=== PATIENT | male | born 1985 ===

== ENCOUNTER 2025-01-31 20:09 | Emergency (ER) | payer MEDICAID ==
[~2025-01-31] VITALS: Ht 177.8 cm; Wt 123.6 kg
--- NOTE | 2025-01-31 20:42 | Physician Documentation ---
History of Present Illness ~ Chief Complaint: Abdominal Pain Stated Complaint: ABDOMINAL PAIN Time Seen by MD: 20:41 HPI Patient presents to the emergency room with three days' history of right lower quadrant abdominal pain. No prior instances. No previous abdominal surgeries. Denies any bladder or bowel changes. Denies nausea. He has had nothing for his pain Medication Reconciliation Allergies: Coded Allergies: No Known Allergies (Unverified , 01/31/25) Review of Systems ROS All review of systems negative except as per HPI Physical Exam Vital Signs: Temperature: 98.7, Source: Oral, Heart Rate: 87, Respiratory Rate: 16, BP: 132/85, Pulse Oximetry: 97, Weight: 123.600 Oxygen Flow Rate: 0 Physical Exam General: Patient is awake, alert, oriented x4 in no acute distress Head: Normocephalic and atraumatic. Eyes: Conjunctival normal. EOMI. PERRL. ENT: Mucous membranes moist. Neck: Supple, trachea is midline. Chest: Clear to auscultation bilaterally without rales, rhonchi, or wheezes. There is no accessory muscle use or retractions. Cardiac: RRR without murmurs, gallops, or rubs. Abd: Soft, nondistended, mild right lower quadrant tenderness to palpation without peritonitis Progress Results/Orders Results/Orders Orders - KAUSHAL ROSALES MD Urinalysis, Cult If Indicated (01/31/25 20:24) Ct Abdomen Pelvis (01/31/25 21:45) Completed Orders - KAUSHAL ROSALES MD Cbc/Diff (01/31/25 20:24) BMP (01/31/25 20:24) Lipase (01/31/25 20:24) CMP (01/31/25 20:24) Ct Abdomen Pelvis (01/31/25 21:45) Amox Tr/Potassium Clavulanate (Augmentin (01/31/25 22:15) Ondansetron Disint. Tablet (Zofran Odt T (01/31/25 22:15) Vital Signs 01/31/25 01/31/25 20:19 22:01 Temp 98.7 Pulse 87 Resp 16 18 B/P (MAP) 132/85 Pulse Ox 97 O2 Flow Rate 0 Laboratory Tests Test 01/31/25 20:31 White Blood Count 12.7 H Red Blood Count 4.93 Hemoglobin 15.9 Hematocrit 46.4 Mean Corpuscular Volume 94.0 Mean Corpuscular Hemoglobin 32.2 H Mean Corpuscular Hemoglobin Concent 34.3 Red Cell Distribution Width 13.2 Platelet Count 293 Mean Platelet Volume 7.1 L Neutrophils (%) (Auto) 62.2 Lymphocytes (%) (Auto) 25.0 Monocytes (%) (Auto) 10.0 Eosinophils (%) (Auto) 2.4 Basophils (%) (Auto) 0.4 Neutrophils # (Auto) 7.9 H Lymphocytes # (Auto) 3.2 Monocytes # (Auto) 1.3 H Eosinophils # (Auto) 0.3 Basophils # (Auto) 0.0 CBC Comment Sodium Level 139 Potassium Level 4.2 Chloride Level 103 Carbon Dioxide Level 29.5 Anion Gap 7 L Blood Urea Nitrogen 16 Creatinine 0.97 Estimated GFR/1.73 m2 86 BUN/Creatinine Ratio 16.5 Glucose Level 102 Calcium Level 8.8 Total Bilirubin 0.3 Aspartate Amino Transf (AST/SGOT) 16 Alanine Aminotransferase (ALT/SGPT) 33 Alkaline Phosphatase 125 H Total Protein 7.6 Albumin 3.7 Globulin 3.9 Albumin/Globulin Ratio 0.9 L Lipase 54 Chemistry Comments Medical Decision Making Findings Patient presents to the emergency room for evaluation of abdominal pain. Differentials include but are not limited to appendicitis cholecystitis diverticulitis pancreatitis kidney stone therefore emergent labs and imaging indicated. Slight elevation of white blood cell count and CT scan shows d iverticulitis and we will treat him as such. He is nontoxic appearing I believe will do well on outpatient basis. Antibiotics initiated. Departure Disposition: HOME / SELF CARE / HOMELESS Impression: Primary Impression: Diverticulitis Condition: Stable Discharge Instructions: Diverticulitis Referrals: NO PRIMARY CARE PROVIDER (PCP) Prescriptions Amox Tr/Potassium Clavulanate (Augmentin 500-125 Tablet) 1 Each Tablet 1 TAB PO Q12H for 10 Days, #20 TAB Prov: KAUSHAL ROSALES MD 01/31/25 Education Educated: Patient Educated regarding: diagnosis, treatment, need for follow up Signature Scribe Signature: No scribe Attestation: The note accurately reflects work and decisions made by me.Kaushal Rosales MD 01/31/25 22:21 KAUSHAL ROSALES MD Jan 31, 2025 20:42
[2025-01-31 20:44] LABS: MEAN PLATELET VOLUME 7.1 FL (7.4-10.4); RED CELL DISTRIBUTION WIDTH 13.2 % (11.5-14.5)
[2025-01-31 20:52] LABS: CREATININE 0.97 MG/DL (0.60-1.10); TOTAL CARBON DIOXIDE 29.5 MMOL/L (24-32); eCRCL 106 ML/MIN; eGFR 86 ML/MIN
--- NOTE | 2025-01-31 22:14 | RADIOLOGY REPORT ---
Exam: CT CT ABDOMEN PELVIS History: RLQ pain Comparison Study: None Technique: Multidetector spiral CT of the abdomen was performed from lung bases to pubic symphysis. Imaging was performed without IV contrast. Axial, coronal and sagittal multiplanar reformats were ob tained from the axial data set by the technologist. Radiation Dose : 1. Abdomen/Pelvis: CTDIvol 36 mGy, DLP 1907 mGy*cm. Findings: Evaluation of solid organs is limited due to lack of intravenous contrast use. Lung Bases: No acute or significant lung base finding. Normal heart size. No pleural or pericardial effusion. Liver: The liver is normal in size. No focal lesions. Gallbladder and Biliary Tree: Unremarkable Spleen: Unremarkable Pancreas: The pancreas is grossly normal in appearance. Adrenal Glands: Unremarkable Kidneys: Kidneys are grossly normal without calculi or hydronephrosis. Bladder: Grossly unremarkable for degree of distention. Bowel: The stomach is grossly normal in appearance. No evidence of bowel obstruction. Acute sigmoid d iverticulitis with adjacent fat stranding. No adjacent abscess identified. Normal appendix is visual ized in the right lower quadrant without findings of appendicitis. Ascites: Absent Lymphadenopathy: No mesenteric, retroperitoneal or periportal lymphadenopathy. Abdominal Wall and Mesentery: Unremarkable. Vasculature: The visualized abdominal aorta is normal in size and caliber. Evaluation of abdominal a nd pelvic vessels is limited due to lack of intravenous contrast. Pelvic Organs: Unremarkable Musculoskeletal: No aggressive focal bony lesions, acute fractures or dislocation. IMPRESSION: 1. Acute sigmoid diverticulitis. No adjacent abscess identified. 2. Normal appendix. Radiation optimization: All CT scans at this facility use at least one of these dose optimization simon hniques: automated exposure control mA and/or kV adjustment per patient size (includes targeted exam s where dose is matched to clinical indication) or iterative reconstruction.
[2025-01-31] MEDS ORDERED: AMOX-115 PO (22:21)
[2025-01-31 22:23] LABS: LEUKOCYTE ESTERASE ,URINE NEGATIVE (Neg); NITRITES, URINE NEGATIVE (Neg); OCCULT BLOOD,URINE NEGATIVE (Neg)
[2025-01-31 22:25] LABS: UA COLLECTION TYPE CLN CATCH MIDSTREAM
[2025-01-31] MEDS: amox tr/potassium clavulanate 875/125mg TAB PO ONE (22:29)
[2025-01-31] MEDS: ondansetron 4mg rapidly disintigrating tab PO ONE (22:29)
[2025-01-31 22:32] VITALS: BP 132/80; PULSE 85; RESP 18; TEMP 98.6; O2SAT 99
== END 2025-01-31 22:32 | disposition home or self-care (01) ==
LOC: ER 20:09
DX: K57.32 Diverticulitis of large intestine without perforation or abscess without bleeding (principal)
CPT/HCPCS: 36415; 74176; 80053; 81003; 83690; 85025; 99284